=== PATIENT | male | born 1955 | race Caucasian/White ===

== ENCOUNTER → 2020-09-17 | Outpatient (CLI) | payer MEDICARE ==
[~2020-09-17] MED LIST: ASPIRIN CHEWABL81 MG PO; BUDESONIDE-FO10.2 GM INH; CARVEDILOL3.125 MG PO; GEMFIBROZIL600 MG PO; HYDRALAZINE HCL10 MG PO; IMODIUM MULTI-1 EACH PO; INSULIN LI100 UNIT/2 SQ; ISORDIL TAB 1010 MG PO; NEURONTIN300 MG PO; PHOSPHA 250 NE250 MG PO; VITAMIN D31250 MCG PO
[2020-09-17 08:23] LABS: HEMOGLOBIN 11.2 gm/dl (14.0-17.5); RED BLOOD COUNT 3.71 M/UL (4.20-5.50); WHITE BLOOD COUNT 7.1 K/UL (4.5-11.0)
== END ==
LOC: CATH 09-16 08:00
PROVIDERS: Internal Medicine Cardiovascular Disease
DX: I25.118 Atherosclerotic heart disease of native coronary artery with other forms of angina pectoris (principal); I13.2 Hypertensive heart and chronic kidney disease with heart failure and with stage 5 chronic kidney disease, or end stage renal disease; E11.22 Type 2 diabetes mellitus with diabetic chronic kidney disease; N18.5 Chronic kidney disease, stage 5; I50.22 Chronic systolic (congestive) heart failure; I25.5 Ischemic cardiomyopathy; I42.0 Dilated cardiomyopathy; Z87.891 Personal history of nicotine dependence; Z99.2 Dependence on renal dialysis; Z79.4 Long term (current) use of insulin; Z79.899 Other long term (current) drug therapy
CPT/HCPCS: 71045; 80048; 82962; 85025; 85610; 93005; 99152; C1769; C1894; J0360; J1644; J2250; J3010; J7030; Q9965

== ENCOUNTER → 2020-09-20 | Outpatient (CLI) | payer MEDICARE | LOC: HEART CORB 09-16 10:30 | DX: I50.32 Chronic diastolic (congestive) heart failure (principal); I42.0 Dilated cardiomyopathy; I08.1 Rheumatic disorders of both mitral and tricuspid valves; I70.0 Atherosclerosis of aorta | CPT/HCPCS: 93306 ==

== ENCOUNTER → 2020-10-29 | Outpatient (CLI) | payer MEDICARE | LOC: HEART 5 10:51 | DX: J60 Coalworker's pneumoconiosis (principal); Z87.891 Personal history of nicotine dependence; R94.2 Abnormal results of pulmonary function studies | CPT/HCPCS: 94060; 94729 ==